=== PATIENT | male | born 1990 | race African-American/Black ===

== ENCOUNTER 2018-07-26 00:06 | Emergency (ER) | payer OTHER, SELFPAY ==
[2018-07-26] MEDS ORDERED: diphenhydrAMINE 50 MG/ML VIAL ONE (00:22)
[2018-07-26] MEDS ORDERED: methylPREDNISolone Sod Succ/PF 125 MG/2 ML VIAL ONE (00:22)
[2018-07-26] MEDS ORDERED: EPINEPHrine 1 MG/ML AMP ONE ×2 (01:10→01:16)
== END 2018-07-26 02:01 | disposition home or self-care (01) ==
LOC: NAV ERS 00:06
DX: L50.0 Allergic urticaria (principal); F17.210 Nicotine dependence, cigarettes, uncomplicated
CPT/HCPCS: 96372; 96374; 96375; 99406; J0171; J1200; J2930